=== PATIENT | female | born 1980 | race Caucasian/White ===

== ENCOUNTER → 2024-03-07 | Outpatient (CLI) | payer OTHER ==
--- NOTE | 2024-03-07 15:29 | XR ---
EXAMINATION TYPE: XR forearm LT, XR wrist complete LT DATE OF EXAM: 03/07/2024 3:20 PM CLINICAL INDICATION: Female, 43 years old with history of [id number], [id number]; [facility] COMPARISON: None TECHNIQUE: XR forearm LT, XR wrist complete LT; forearm was examined in AP and lateral projections. FINDINGS: No acute osseous pathology, soft tissue swelling or joint dislocations are seen. IMPRESSION: No evidence of acute fracture. [facility], , 03/07/2024 3:26 PM
== END | disposition home or self-care (01) ==
LOC: RADXRMAIN 14:48
PROVIDERS: ATTEND Emergency Medicine

== ENCOUNTER → 2024-06-12 | Outpatient (CLI) | payer BC ==
--- NOTE | 2024-06-12 17:47 | XR ---
EXAMINATION TYPE: XR chest 2V DATE OF EXAM: 06/12/2024 5:10 PM COMPARISON: None. 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 TECHNIQUE: Frontal and lateral views of the chest are obtained. FINDINGS: There is no focal air space opacity, pleural effusion, or pneumothorax seen. The cardiac silhouette size is within normal limits. The osseous structures are intact. IMPRESSION: No acute cardiopulmonary process. [facility], , 06/12/2024 5:45 PM
[2024-06-12 18:31] LABS: Basophils # (A) 0.1 k/uL (0-0.2); Basophils % (A) 1 %; Eosinophils # (A) 0.3 k/uL (0-0.7); Eosinophils % (A) 4 %; HGB 16.1 gm/dL (11.4-16.0); Lymphocytes # (A) 2.8 k/uL (1.0-4.8); Lymphocytes % (A) 34 %; MCH 29.6 pg (25.0-35.0); MCHC 32.8 g/dL (31.0-37.0); MCV 90.1 fL (80.0-100.0); Mean Platelet Volume 7.7; Monocytes # (A) 0.5 k/uL (0-1.0); Monocytes % (A) 6 %; Neutrophils # (A) 4.5 k/uL (1.3-7.7); Neutrophils % (A) 54 %; Platelet Count 267 k/uL (150-450); RBC 5.44 m/uL (3.80-5.40); RDW 12.8 % (11.5-15.5); WBC 8.4 k/uL (3.8-10.6)
[2024-06-13 02:36] LABS: C Reactive Protein <0.30 mg/dL (0.00-0.80); Rheumatoid Factor, Qnt <15 IU/mL (0-15)
[2024-06-13 03:57] LABS: Erythrocyte Sedimentation Rate 15 mm/Hr (0-20)
[2024-06-13 04:27] LABS: Anti-DNA, DS unit <1.0 IU/mL; DNA Double-Stranded Negative (Negative)
[2024-06-13 10:24] LABS: HLA B27 NEGATIVE
[2024-06-13 12:28] LABS: Angiotensin-1 Converting Enz. 23 U/L (8-52)
== END | disposition home or self-care (01) ==
LOC: RADXRMAIN 16:57
PROVIDERS: ATTEND Student in an Organized Health Care Education/Training Program
DX: H15.012 Anterior scleritis, left eye (principal)
CPT/HCPCS: 71046; 82164; 83516; 85025; 85549; 85652; 86038; 86140; 86225; 86431; 86592; 86618; 86780; 86812